=== PATIENT | female | born 1995 | race Caucasian/White ===

== ENCOUNTER 2020-08-30 01:41 | Inpatient (IN) | payer MEDICAID ==
[2020-08-30] MEDS ORDERED: Sodium Chloride 0.9% 2.5 ML Syringe FLUSH PRN (08:17)
[2020-08-30] MEDS ORDERED: Sodium Chloride 0.9% 10 ML SDV IV PRN (08:17)
[2020-08-30] MEDS ORDERED: Citric Acid/Sodium Citrate Solution 30 ML Cup PO ONE (08:17)
[2020-08-30] MEDS ORDERED: Sodium Chloride 0.9% 10 ML Syringe FLUSH PRN (08:17)
[2020-08-30] MEDS ORDERED: ceFAZolin 2 GM in Premix Bag 1 BAG IV ONE (08:30)
[2020-08-30] MEDS ORDERED: Oxytocin/0.9 % Sodium Chloride 30 UNIT/500 ML BAG IV SCH (08:30)
[2020-08-30] MEDS: Lactated Ringers 1,000 ML IV SCH ×3 (09:09→09:57)
[2020-08-30] MEDS ORDERED: Morphine PF 10 MG/10 ML SDV ONE (09:34)
[2020-08-30] MEDS ORDERED: Octyl 2-Cyanoacrylate 1 Tube ONE (09:52)
[2020-08-30] MEDS ORDERED: fentaNYL 100 MCG/2 ML SDV ONE ×2 (10:31→10:40)
[2020-08-30] MEDS ORDERED: Oxytocin 10 Units/1 ML SDV ONE (10:33)
[2020-08-30] MEDS ORDERED: Ondansetron 4 MG/2 ML SDV ONE (10:33)
[2020-08-30] MEDS ORDERED: Midazolam 1 MG/ML 2 ML SDV ONE (10:53)
[2020-08-30] MEDS ORDERED: Ketamine 500 mg/10 ML MDV ONE (10:53)
[2020-08-30] MEDS ORDERED: diphenhydrAMINE 50 MG/ML SDV IVPUSH PRN (11:19)
[2020-08-30] MEDS ORDERED: Ondansetron 4 MG/2 ML SDV IVPUSH PRN (11:19)
[2020-08-30] MEDS ORDERED: Acetaminophen/oxyCODONE 325-5 MG Tab PO PRN (11:19)
[2020-08-30] MEDS ORDERED: Bisacodyl 10 MG Supp RECTAL PRN (11:19)
[2020-08-30] MEDS ORDERED: Methylergonovine 0.2 MG/1 ML Amp IM PRN (11:19)
[2020-08-30] MEDS ORDERED: Misoprostol 200 MCG Tab RECTAL PRN (11:19)
[2020-08-30] MEDS ORDERED: Tranexamic Acid 1,000 MG in Sodium Chloride 0.9% 100 ML IV PRN (11:19)
[2020-08-30] MEDS ORDERED: Oxytocin 10 Units/1 ML SDV IM PRN (11:19)
[2020-08-30] MEDS ORDERED: Lanolin 100% Cream 7 GM Tube TOP PRN (11:19)
[2020-08-30] MEDS: Ketorolac 30 MG/ML SDV IVPUSH SCH ×3 (11:20→23:12)
[2020-08-30] MEDS ORDERED: Lactated Ringers 1,000 ML IV SCH (11:30)
--- NOTE | 2020-08-30 12:19 | PCM.PREANE ---
Preanesthetic Assessment - Anesthesia/Transfusion/Family Hx Anesthesia History: Prior Anesthesia Without Reaction Family History of Anesthesia Reaction: No Transfusion History: No Prior Transfusion(s) - Review of Systems General: No Symptoms Pulmonary: No Symptoms Cardiovascular: No Symptoms Gastrointestinal: No Symptoms Neurological: No Symptoms Other: Reports: None - Physical Assessment NPO Status Date: 08/30/20 NPO Status Time: 00:01 Height: 5 ft 4 in Weight: 198 lb ASA Class: 2E Mental Status: Alert & Oriented x3 Airway Class: Mallampati = 2 Dentition: Reports: Normal Dentition ROM/Head Extension: Full Lungs: Clear to Auscultation, Normal Respiratory Effort Cardiovascular: Regular Rate, Regular Rhythm - Lab Values: Laboratory Last Values WBC 13.14 K/uL (4.0-11.0) H 08/30/20 09:09 RBC 3.77 M/uL (4.30-5.90) L 08/30/20 09:09 Hgb 12.2 g/dL (12.0-16.0) 08/30/20 09:09 Hct 36.6 % (36.0-46.0) 08/30/20 09:09 MCV 97.1 fL (80.0-98.0) 08/30/20 09:09 MCH 32.4 pg (27.0-32.0) H 08/30/20 09:09 MCHC 33.3 g/dL (31.0-37.0) 08/30/20 09:09 RDW Std Deviation 47.0 fl (28.0-62.0) 08/30/20 09:09 RDW Coeff of Stephane 13 % (11.0-15.0) 08/30/20 09:09 Plt Count 264 K/uL (150-400) 08/30/20 09:09 MPV 11.10 fL (7.40-12.00) 08/30/20 09:09 Nucleated RBC % 0.0 /100WBC 08/30/20 09:09 Nucleated RBCs # 0 K/uL 08/30/20 09:09 SARS-CoV-2 RNA (ELDER) NEGATIVE (NEGATIVE) 08/30/20 09:04 Blood Type AB POSITIVE 08/30/20 09:09 Antibody Screen NEGATIVE 08/30/20 09:09 - Allergies Allergies/Adverse Reactions: Allergies Allergy/AdvReac Type Severity Reaction Status Date / Time No Known Allergies Allergy Verified 08/28/20 15:42 - Anesthesia Plan Pre-Op Medication Ordered: None - Acknowledgements Anesthesia Type Planned: Spinal Pt an Appropriate Candidate for the Planned Anesthesia: Yes Alternatives and Risks of Anesthesia Discussed w Pt/Guardian: Yes Pt/Guardian Understands and Agrees with Anesthesia Plan: Yes Additional Comments: npo after mn scheduled for C/S and went into labor last night G1 breech no problems during her par no questions PreAnesthesia Questionnaire - Past Health History Medical/Surgical History: Denies Medical/Surgical History HEENT History: Reports: Impaired Vision Other HEENT History: wears glasses Cardiovascular History: Reports: None Respiratory History: Reports: Other (See Below) Other Respiratory History: 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 Gastrointestinal History: Reports: GERD Genitourinary History: Reports: Renal Calculus Other Genitourinary History: states had a kidney stone in 2018 that she passed on her own FILM MASKER History: Reports: Musculoskeletal History: Reports: Back Pain, Chronic Neurological History: Reports: None Psychiatric History: Reports: Anxiety, Depression Endocrine/Metabolic History: Reports: Obesity/BMI 30+ Hematologic History: Reports: None Immunologic History: Reports: None Oncologic (Cancer) History: Reports: None Dermatologic History: Reports: None - Infectious Disease History Infectious Disease History: Reports: None - Past Surgical History Head Surgeries/Procedures: Reports: None HEENT Surgical History: Reports: Oral Surgery, Tonsillectomy Other HEENT Surgeries/Procedures: had wisdom teeth extracted Cardiovascular Surgical History: Reports: None Respiratory Surgical History: Reports: None GI Surgical History: Reports: None Female Surgical History: Reports: None Endocrine Surgical History: Reports: None Musculoskeletal Surgical History: Reports: None Oncologic Surgical History: Reports: None - SUBSTANCE USE Tobacco Use Status *Q: Never Tobacco User - HOME MEDS Home Medications: Home Meds Calcium Carbonate [Antacid] 1 tab PO ASDIRECTED PRN 08/28/20 [History] - CURRENT (IN HOUSE) MEDS Current Meds: Current Medications Bisacodyl (Bisacodyl 10 Mg Supp) 10 mg RECTAL ONETIME PRN PRN Reason: Constipation Diphenhydramine HCl (Diphenhydramine 50 Mg/Ml Sdv) 25 mg IVPUSH Q6H PRN PRN Reason: Itching or Nausea Docusate Sodium (Docusate Sodium 100 Mg Cap) 100 mg PO BID [facility] Emollient Ointment (Lanolin 100% Cream 7 Gm Tube) 0 gm TOP ASDIRECTED PRN PRN Reason: Sore Nipples Lactated Ringer's (Ringers, Lactated) 1,000 mls @ 500 mls/hr IV BOLUS [facility] Last Admin: 08/30/20 09:57 Dose: 500 mls/hr Documented by: Oxytocin/Sodium Chloride (Oxytocin 30 Unit/500 Ml-Ns) 30 unit in 500 mls @ 250 mls/hr IV TITRATE [facility] Lactated Ringer's (Ringers, Lactated) 1,000 mls @ 125 mls/hr IV ASDIRECTED [facility] Tranexamic Acid 1,000 mg/ (Sodium Chloride) 110 mls @ 660 mls/hr IV ONETIME PRN PRN Reason: Bleeding Ibuprofen (Ibuprofen 800 Mg Tab) 800 mg PO Q8H PRN PRN Reason: mild pain or fever Ketorolac Tromethamine (Ketorolac 30 Mg/Ml Sdv) 30 mg IVPUSH Q6H [facility] Stop: 08/31/20 11:31 Last Admin: 08/30/20 11:20 Dose: 30 mg Documented by: Methylergonovine Maleate (Methylergonovine 0.2 Mg/1 Ml Amp) 0.2 mg IM ONETIME PRN PRN Reason: Excessive Vaginal Bleeding Misoprostol (Misoprostol 200 Mcg Tab) 1,000 mcg RECTAL ONETIME PRN PRN Reason: excessive bleeding Ondansetron HCl (Ondansetron 4 Mg/2 Ml Sdv) 4 mg IVPUSH Q4H PRN PRN Reason: Nausea/Vomiting Oxycodone/Acetaminophen (Acetaminophen/Oxycodone 325-5 Mg Tab) 1 tab PO Q4H PRN PRN Reason: Pain (moderate 4-6) Oxycodone/Acetaminophen (Acetaminophen/Oxycodone 325-5 Mg Tab) 2 tab PO Q4H PRN PRN Reason: Pain (moderate 4-6) Oxytocin (Oxytocin 10 Units/1 Ml Sdv) 10 unit IM ASDIRECTED PRN PRN Reason: Excessive Vaginal Bleeding Sodium Chloride (Sodium Chloride 0.9% 10 Ml Syringe) 10 ml FLUSH ASDIRECTED PRN PRN Reason: Keep Vein Open Sodium Chloride (Sodium Chloride 0.9% 2.5 Ml Syringe) 2.5 ml FLUSH ASDIRECTED PRN PRN Reason: Keep Vein Open Sodium Chloride (Sodium Chloride 0.9% 10 Ml Sdv) 10 ml IV ASDIRECTED PRN PRN Reason: IV Use Discontinued Medications Citric Acid/Sodium Citrate (Citric Acid/Sodium Citrate Solution 30 Ml Cup) 30 ml PO ONETIME ONE Stop: 08/30/20 08:18 Last Admin: 08/30/20 09:55 Dose: 30 ml Documented by: Fentanyl (Fentanyl 100 Mcg/2 Ml Sdv) Confirm Administered Dose 100 mcg .ROUTE .STK-MED ONE Stop: 08/30/20 10:32 Fentanyl (Fentanyl 100 Mcg/2 Ml Sdv) Confirm Administered Dose 100 mcg .ROUTE .STK-MED ONE Stop: 08/30/20 10:41 Cefazolin Sodium/Dextrose 2 gm (/ Premix) 50 mls @ 100 mls/hr IV ONETIME ONE Stop: 08/30/20 08:59 Ketamine HCl (Ketamine 500 Mg/10 Ml Mdv) Confirm Administered Dose 500 mg .ROUTE .STK-MED ONE Stop: 08/30/20 10:54 Midazolam HCl (Midazolam 1 Mg/Ml 2 Ml Sdv) Confirm Administered Dose 2 mg .ROUTE .STK-MED ONE Stop: 08/30/20 10:54 Morphine Sulfate (Morphine Pf 10 Mg/10 Ml Sdv) Confirm Administered Dose 10 mg .ROUTE .STK-MED ONE Stop: 08/30/20 09:35 Octyl Cyanoacrylate (Octyl 2-Cyanoacrylate 1 Tube) Confirm Administered Dose 1 applic .ROUTE .STK-MED ONE Stop: 08/30/20 09:53 Ondansetron HCl (Ondansetron 4 Mg/2 Ml Sdv) Confirm Administered Dose 4 mg .ROUTE .STK-MED ONE Stop: 08/30/20 10:34 Oxytocin (Oxytocin 10 Units/1 Ml Sdv) Confirm Administered Dose 20 unit .ROUTE .STK-MED ONE Stop: 08/30/20 10:34
--- NOTE | 2020-08-30 12:20 | PCM.POSTAN ---
POST ANESTHESIA ASSESSMENT - MENTAL STATUS Mental Status: Alert (no anesthetic problems), Oriented - RESPIRATORY Respiratory Status: Respiratory Rate WNL, Airway Patent, O2 Saturation Stable - CARDIOVASCULAR CV Status: Pulse Rate WNL, Blood Pressure Stable - GASTROINTESTINAL GI Status: No Symptoms - POST OP HYDRATION Hydration Status: Adequate & Stable
[2020-08-30] MEDS: Docusate Sodium 100 MG Cap PO SCH (21:00)
[2020-08-31] MEDS: Ketorolac 30 MG/ML SDV IVPUSH SCH ×2 (05:23→12:56)
--- NOTE | 2020-08-31 07:06 | PCM48HPAN ---
Post Anesthesia Note - EVALUATION WITHIN 48HRS OF ANESTHETIC Vital Signs in Normal Range: Yes Patient Participated in Evaluation: Yes Respiratory Function Stable: Yes Airway Patent: Yes Cardiovascular Function Stable: Yes Hydration Status Stable: Yes Pain Control Satisfactory: Yes Nausea and Vomiting Control Satisfactory: Yes Mental Status Recovered: Yes Vital Signs: Last Vital Signs Temp 36.9 C 08/31/20 04:00 Pulse 96 08/31/20 06:00 Resp 16 08/31/20 06:00 BP 112/62 08/31/20 04:00 Pulse Ox 94 L 08/31/20 06:00
--- NOTE | 2020-08-31 08:30 | OR ---
SURGEON: Aniceto Bowden MD DATE OF PROCEDURE: 08/30/2020 INDICATION FOR PROCEDURE: A 25-year-old, G1, P0, at 39 weeks and 0 days, presented with regular contractions. The baby is breech presentation was scheduled for a primary . She declined ECV after discussion of risks and benefits. The patient was monitored for about 4 hours and she had regular contractions that were uncomfortable. She lives remotely from the hospital. Decision was made to proceed with primary section at this time. She had otherwise uncomplicated and is GBS negative. PREOPERATIVE DIAGNOSES: 1. Andrews intrauterine at 39 weeks and 0 days. 2. Breech presentation. POSTOPERATIVE DIAGNOSES: 1. Andrews intrauterine at 39 weeks and 0 days. 2. Breech presentation. PROCEDURE PERFORMED: Primary low-transverse section. ANESTHESIOLOGIST: Dr. Joelle Elliott. ANESTHESIA: Spinal. FINDINGS: Viable male in [place] breech presentation. scores of 7 and 9. weight of 7lbs 2oz. ESTIMATED BLOOD LOSS: 700 cc. DESCRIPTION OF PROCEDURE: The procedure was discussed with the patient. Risks and complications including bleeding, infection, injury to surrounding organs including bladder, bowel, and ureter. The patient expressed understanding. Consent signed. The patient was brought to the operating room. She received 2 g Ancef IV and pneumatic stockings. Spinal anesthesia was placed. A Imtchell catheter was placed. The abdomen was prepped with chlorhexidine in sterile fashion and draped and tested for anesthesia. The spinal was adequate. A Pfannenstiel incision was made with a scalpel and dissected down to fascia. Multiple sites of bleeding were noted and cauterized. The fascia was cleared of subcutaneous tissue. The fascia was incised in the midline and extended laterally with curved Shane scissors. Allan clamps were placed on the superior fascial edge. The rectus muscles were with a blunt dissection and using Shane scissors. The same process was repeated for the inferior fascial edge. The peritoneum was entered bluntly. The rectus muscles were carefully in the midline using Metzenbaum scissors. The peritoneum was then extended bluntly. A large Jamil O retractor was placed in the peritoneal cavity. The bladder was noted to be away from the site of the incision. The uterus was incised using the scalpel at the lower uterine segment transversely and extended bluntly. Clear amniotic fluid was noted and ruptured. The was turned sacrum anterior and buttocks brought out of the hysterotomy. The baby was in [place] breech presentation. The legs and body were then delivered. The baby was then rotated to deliver the right arm, then rotated the opposite side to deliver the left arm. The baby's hips were elevated and the chin flexed and delivered. No nuchal cord was noted. The baby was pink, crying and moving all extremities immediately after delivery. The umbilical cord was clamped and cut after 60 seconds and no longer pulsating. The baby was handed over to the awaiting nursery staff. Cord gases were obtained. The placenta was delivered with gentle traction on the umbilical cord and uterine massage. A clean lap was used to remove all remaining membranes from the uterine cavity. Allis clamps were used to grasp the angles and lower edges of the incision. The uterine incision was closed in two layers, the first layer in running locking fashion using 0 Monocryl, the second layer in vertical imbricated fashion using 0 Vicryl. The uterus was firm. The paracolic gutters were cleared of any clots. The incision was irrigated copiously and checked again for hemostasis. The Jamil O retractors were removed. The edge of the peritoneum was grasped with hemostats, it was closed with 2-0 Vicryl in running fashion. The rectus muscles were reapproximated at the midline with two mattress sutures using 2-0 Vicryl. The rectus muscles were carefully examined and bleeding areas cauterized. The fascia was closed using 0 Vicryl in running fashion. The subcutaneous tissue was irrigated and bleeding areas cauterized. The subcutaneous layer was brought together with 2-0 plain suture. The skin was closed in subcuticular fashion using 2-0 Monocryl on a Patric needle. A Telfa, ABD dressing was placed over the incision. The patient tolerated the procedure well, was stable and transferred to the recovery room. CATALINA GARG /[id number] ANGELICA
--- NOTE | 2020-08-31 08:49 | PCM.PNPP ---
- General Info Date of Service: 08/31/20 Functional Status: Reports: Pain Controlled, Tolerating Diet, Ambulating, Urinating - Review of Systems General: Reports: No Symptoms HEENT: Reports: No Symptoms Pulmonary: Reports: No Symptoms Cardiovascular: Reports: No Symptoms Gastrointestinal: Reports: No Symptoms Genitourinary: Reports: No Symptoms Musculoskeletal: Reports: No Symptoms Skin: Reports: No Symptoms Neurological: Reports: No Symptoms Psychiatric: Reports: No Symptoms - Patient Data Vital Signs - Most Recent: Last Vital Signs Temp 36.1 C 08/31/20 07:32 Pulse 91 08/31/20 08:05 Resp 18 08/31/20 08:05 BP 121/82 08/31/20 07:32 Pulse Ox 94 L 08/31/20 08:05 Weight - Most Recent: 198 lb I&O - Last 24 Hours: Intake & Output 08/30/20 08/31/20 08/31/20 22:59 06:59 14:59 Output Total 1125 1325 Balance -1125 -1325 Lab Results - Last 24 Hours: Laboratory Results - last 24 hr 08/30/20 08/30/20 08/30/20 Range/Units 09:04 09:09 09:09 WBC 13.14 H (4.0-11.0) K/uL RBC 3.77 L (4.30-5.90) M/uL Hgb 12.2 (12.0-16.0) g/dL Hct 36.6 (36.0-46.0) % MCV 97.1 (80.0-98.0) fL MCH 32.4 H (27.0-32.0) pg MCHC 33.3 (31.0-37.0) g/dL RDW Std Deviation 47.0 (28.0-62.0) fl RDW Coeff of Stephane 13 (11.0-15.0) % Plt Count 264 (150-400) K/uL MPV 11.10 (7.40-12.00) fL Nucleated RBC % 0.0 /100WBC Nucleated RBCs # 0 K/uL Cord ABG pH Cord ABG Base Excess Cord VBG pH (7.25-7.45) Cord VBG Base Excess (-10--2) SARS-CoV-2 RNA (ELDER) NEGATIVE (NEGATIVE) Blood Type AB POSITIVE Antibody Screen NEGATIVE 08/30/20 08/30/20 08/31/20 Range/Units 10:55 10:55 05:45 WBC (4.0-11.0) K/uL RBC (4.30-5.90) M/uL Hgb 10.7 L (12.0-16.0) g/dL Hct 32.6 L (36.0-46.0) % MCV (80.0-98.0) fL MCH (27.0-32.0) pg MCHC (31.0-37.0) g/dL RDW Std Deviation (28.0-62.0) fl RDW Coeff of Stephane (11.0-15.0) % Plt Count (150-400) K/uL MPV (7.40-12.00) fL Nucleated RBC % /100WBC Nucleated RBCs # K/uL Cord ABG pH QNS Cord ABG Base Excess QNS Cord VBG pH 7.402 (7.25-7.45) Cord VBG Base Excess -4 (-10--2) SARS-CoV-2 RNA (ELDER) (NEGATIVE) Blood Type Antibody Screen Med Orders - Current: Current Medications Bisacodyl (Bisacodyl 10 Mg Supp) 10 mg RECTAL ONETIME PRN PRN Reason: Constipation Diphenhydramine HCl (Diphenhydramine 50 Mg/Ml Sdv) 25 mg IVPUSH Q6H PRN PRN Reason: Itching or Nausea Docusate Sodium (Docusate Sodium 100 Mg Cap) 100 mg PO BID [facility] Last Admin: 08/30/20 21:00 Dose: 100 mg Documented by: Emollient Ointment (Lanolin 100% Cream 7 Gm Tube) 0 gm TOP ASDIRECTED PRN PRN Reason: Sore Nipples Lactated Ringer's (Ringers, Lactated) 1,000 mls @ 500 mls/hr IV BOLUS [facility] Last Admin: 08/30/20 09:57 Dose: 500 mls/hr Documented by: Oxytocin/Sodium Chloride (Oxytocin 30 Unit/500 Ml-Ns) 30 unit in 500 mls @ 250 mls/hr IV TITRATE [facility] Lactated Ringer's (Ringers, Lactated) 1,000 mls @ 125 mls/hr IV ASDIRECTED [facility] Last Admin: 08/30/20 13:28 Dose: 125 mls/hr Documented by: Tranexamic Acid 1,000 mg/ (Sodium Chloride) 110 mls @ 660 mls/hr IV ONETIME PRN PRN Reason: Bleeding Ibuprofen (Ibuprofen 800 Mg Tab) 800 mg PO Q8H PRN PRN Reason: mild pain or fever Ketorolac Tromethamine (Ketorolac 30 Mg/Ml Sdv) 30 mg IVPUSH Q6H [facility] Stop: 08/31/20 11:31 Last Admin: 08/31/20 05:23 Dose: 30 mg Documented by: Methylergonovine Maleate (Methylergonovine 0.2 Mg/1 Ml Amp) 0.2 mg IM ONETIME PRN PRN Reason: Excessive Vaginal Bleeding Misoprostol (Misoprostol 200 Mcg Tab) 1,000 mcg RECTAL ONETIME PRN PRN Reason: excessive bleeding Ondansetron HCl (Ondansetron 4 Mg/2 Ml Sdv) 4 mg IVPUSH Q4H PRN PRN Reason: Nausea/Vomiting Oxycodone/Acetaminophen (Acetaminophen/Oxycodone 325-5 Mg Tab) 1 tab PO Q4H PRN PRN Reason: Pain (moderate 4-6) Last Admin: 08/30/20 16:17 Dose: 1 tab Documented by: Oxycodone/Acetaminophen (Acetaminophen/Oxycodone 325-5 Mg Tab) 2 tab PO Q4H PRN PRN Reason: Pain (moderate 4-6) Oxytocin (Oxytocin 10 Units/1 Ml Sdv) 10 unit IM ASDIRECTED PRN PRN Reason: Excessive Vaginal Bleeding Sodium Chloride (Sodium Chloride 0.9% 10 Ml Syringe) 10 ml FLUSH ASDIRECTED PRN PRN Reason: Keep Vein Open Sodium Chloride (Sodium Chloride 0.9% 2.5 Ml Syringe) 2.5 ml FLUSH ASDIRECTED PRN PRN Reason: Keep Vein Open Sodium Chloride (Sodium Chloride 0.9% 10 Ml Sdv) 10 ml IV ASDIRECTED PRN PRN Reason: IV Use Discontinued Medications Citric Acid/Sodium Citrate (Citric Acid/Sodium Citrate Solution 30 Ml Cup) 30 ml PO ONETIME ONE Stop: 08/30/20 08:18 Last Admin: 08/30/20 09:55 Dose: 30 ml Documented by: Fentanyl (Fentanyl 100 Mcg/2 Ml Sdv) Confirm Administered Dose 100 mcg .ROUTE .STK-MED ONE Stop: 08/30/20 10:32 Fentanyl (Fentanyl 100 Mcg/2 Ml Sdv) Confirm Administered Dose 100 mcg .ROUTE .STK-MED ONE Stop: 08/30/20 10:41 Cefazolin Sodium/Dextrose 2 gm (/ Premix) 50 mls @ 100 mls/hr IV ONETIME ONE Stop: 08/30/20 08:59 Last Admin: 08/30/20 16:01 Dose: Not Given Documented by: Ketamine HCl (Ketamine 500 Mg/10 Ml Mdv) Confirm Administered Dose 500 mg .ROUTE .STK-MED ONE Stop: 08/30/20 10:54 Midazolam HCl (Midazolam 1 Mg/Ml 2 Ml Sdv) Confirm Administered Dose 2 mg .ROUTE .STK-MED ONE Stop: 08/30/20 10:54 Morphine Sulfate (Morphine Pf 10 Mg/10 Ml Sdv) Confirm Administered Dose 10 mg .ROUTE .STK-MED ONE Stop: 08/30/20 09:35 Octyl Cyanoacrylate (Octyl 2-Cyanoacrylate 1 Tube) Confirm Administered Dose 1 applic .ROUTE .STK-MED ONE Stop: 08/30/20 09:53 Last Admin: 08/30/20 16:01 Dose: Not Given Documented by: Ondansetron HCl (Ondansetron 4 Mg/2 Ml Sdv) Confirm Administered Dose 4 mg .ROUTE .STK-MED ONE Stop: 08/30/20 10:34 Oxytocin (Oxytocin 10 Units/1 Ml Sdv) Confirm Administered Dose 20 unit .ROUTE .STK-MED ONE Stop: 08/30/20 10:34 - Infant Interaction Infant Disposition, : [place] to Nursery Support Person: - Recovery Exam Fundal Tone: Firm Fundal Level: 1 Fingerbreadths Below Umbilicus Fundal Placement: Midline Lochia Amount: Scant Lochia Color: Rubra/Red Perineum Description: Intact, Minimal Bruising/Swelling Episiotomy/Laceration: None Bladder Status: Indwelling Catheter in Place Urinary Elimination: Indwelling Catheter - Exam General: Alert, Oriented, Cooperative, No Acute Distress HEENT: Pupils Equal, Pupils Reactive Neck: Supple, Trachea Midline, No JVD Lungs: Normal Respiratory Effort GI/Abdominal Exam: Soft, Non-Tender, No Distention Extremities: Normal Inspection, Normal Range of Motion, Non-Tender, No Pedal Edema Skin: Warm, Dry, Intact Wound/Incisions: Dressing Dry and Intact Neurological: No New Focal Deficit Psy/Mental Status: Alert, Normal Affect, Normal Mood - Problem List Review Problem List Initiated/Reviewed/Updated: Yes - My Orders Last 24 Hours: My Active Orders 08/30/20 08:17 Peripheral IV Care [RC] PRN Sodium Chloride 0.9% [Normal Saline] 10 ml IV ASDIRECTED PRN Sodium Chloride 0.9% [Saline Flush] 10 ml FLUSH ASDIRECTED PRN Sodium Chloride 0.9% [Saline Flush] 2.5 ml FLUSH ASDIRECTED PRN Peripheral IV Insertion Adult [OM.PC] Routine Schedule Procedure [COMM] Per Unit Routine 08/30/20 08:30 Lactated Ringers [Ringers, Lactated] 1,000 ml IV BOLUS Oxytocin/0.9 % Sodium Chloride [Oxytocin 30 Unit/500 ML-NS] 30 unit in 500 ml IV TITRATE 08/30/20 09:09 RPR (SYPHILIS SERO) W/ RFLX [REF] Routine 08/30/20 10:00 Notify Provider Vital Signs [RC] PRN 08/30/20 Lunch Regular Diet [DIET] 08/30/20 11:19 Patient Status [ADT] Routine Ambulate [RC] PER UNIT ROUTINE Communication Order [RC] PER UNIT ROUTINE Communication Order [RC] PER UNIT ROUTINE Communication Order [RC] Per Unit Routine Intake and Output [RC] Q4H May Shower [RC] ASDIRECTED Notify Provider Intake and Out [RC] ASDIRECTED Notify Provider Vital Signs [RC] ASDIRECTED RT Incentive Spirometry [RC] Q2HWA Vital Signs [RC] Q1H Acetaminophen/oxyCODONE [Percocet 325-5 MG] 1 tab PO Q4H PRN Acetaminophen/oxyCODONE [Percocet 325-5 MG] 2 tab PO Q4H PRN Lanolin [Lansinoh HPA] See Dose Instructions TOP ASDIRECTED PRN Methylergonovine [Methergine] 0.2 mg IM ONETIME PRN Ondansetron [Zofran] 4 mg IVPUSH Q4H PRN Oxytocin [Pitocin] 10 unit IM ASDIRECTED PRN Tranexamic Acid [Cyklokapron] 1,000 mg Sodium Chloride 0.9% [Normal Saline] 100 ml IV ONETIME bisacodyL [Dulcolax] 10 mg RECTAL ONETIME PRN diphenhydrAMINE [Benadryl] 25 mg IVPUSH Q6H PRN miSOPROStoL [Cytotec] 1,000 mcg RECTAL ONETIME PRN Assess Lochia [WOMSER] Per Unit Routine Assess Uterine Involution [WOMSER] Per Unit Routine Breast Pump [WOMSER] Per Unit Routine Peripheral IV Discontinue [OM.PC] Routine Sequential Compression Device [OM.PC] Per Unit Routine 08/30/20 11:20 Antiembolic Devices [RC] PER UNIT ROUTINE Abdominal Binder [OM.PC] Per Unit Routine 08/30/20 11:30 Ketorolac [Toradol] 30 mg IVPUSH Q6H Lactated Ringers [Ringers, Lactated] 1,000 ml IV ASDIRECTED 08/30/20 21:00 Docusate Sodium [Colace] 100 mg PO BID 08/31/20 17:30 Ibuprofen [Motrin] 800 mg PO Q8H PRN - Assessment Assessment:: 25yo POD1 s/p primary due to breech presentation, stable and recovering well. - Plan Plan:: vital stable ambulating and tolerating PO voiding, good UO Hgb 10.7, bleeding light, no s/s of anemia baby is being monitored for pneumothorax, is improving plan for discharge home tomorrow, pending maternal and status
[2020-08-31] MEDS: Docusate Sodium 100 MG Cap PO SCH ×2 (09:05→22:04)
[2020-08-31] MEDS ORDERED: Ibuprofen 800 MG Tab PO PRN (17:30)
[2020-08-31] MEDS: Acetaminophen/oxyCODONE 325-5 MG Tab PO PRN (19:50)
[2020-09-01] MEDS: Acetaminophen/oxyCODONE 325-5 MG Tab PO PRN ×3 (00:13→11:28)
[2020-09-01 08:01] VITALS: BP 116/85; PULSE 83
[2020-09-01] MEDS: Docusate Sodium 100 MG Cap PO SCH (08:01)
--- NOTE | 2020-09-01 08:54 | PCM.PN ---
- General Info Date of Service: 09/01/20 Functional Status: Reports: Pain Controlled, Tolerating Diet, Ambulating, Urinating, Other (+ flatus and BM) - Review of Systems General: Reports: No Symptoms HEENT: Reports: No Symptoms Pulmonary: Reports: No Symptoms Cardiovascular: Reports: No Symptoms Gastrointestinal: Reports: No Symptoms Genitourinary: Reports: No Symptoms Musculoskeletal: Reports: No Symptoms Skin: Reports: No Symptoms Neurological: Reports: No Symptoms Psychiatric: Reports: No Symptoms - Patient Data Vitals - Most Recent: Last Vital Signs Temp 36.4 C 09/01/20 07:30 Pulse 83 09/01/20 07:30 Resp 19 09/01/20 07:30 BP 116/85 09/01/20 07:30 Pulse Ox 98 09/01/20 07:30 Weight - Most Recent: 198 lb Med Orders - Current: Current Medications Bisacodyl (Bisacodyl 10 Mg Supp) 10 mg RECTAL ONETIME PRN PRN Reason: Constipation Diphenhydramine HCl (Diphenhydramine 50 Mg/Ml Sdv) 25 mg IVPUSH Q6H PRN PRN Reason: Itching or Nausea Docusate Sodium (Docusate Sodium 100 Mg Cap) 100 mg PO BID REPLACED BY [facility] Last Admin: 08/31/20 22:04 Dose: 100 mg Documented by: Emollient Ointment (Lanolin 100% Cream 7 Gm Tube) 0 gm TOP ASDIRECTED PRN PRN Reason: Sore Nipples Lactated Ringer's (Ringers, Lactated) 1,000 mls @ 500 mls/hr IV BOLUS REPLACED BY [facility] Last Admin: 08/30/20 09:57 Dose: 500 mls/hr Documented by: Oxytocin/Sodium Chloride (Oxytocin 30 Unit/500 Ml-Ns) 30 unit in 500 mls @ 250 mls/hr IV TITRATE REPLACED BY [facility] Lactated Ringer's (Ringers, Lactated) 1,000 mls @ 125 mls/hr IV ASDIRECTED REPLACED BY [facility] Last Admin: 08/30/20 13:28 Dose: 125 mls/hr Documented by: Tranexamic Acid 1,000 mg/ (Sodium Chloride) 110 mls @ 660 mls/hr IV ONETIME PRN PRN Reason: Bleeding Ibuprofen (Ibuprofen 800 Mg Tab) 800 mg PO Q8H PRN PRN Reason: mild pain or fever Last Admin: 09/01/20 04:38 Dose: 800 mg Documented by: Methylergonovine Maleate (Methylergonovine 0.2 Mg/1 Ml Amp) 0.2 mg IM ONETIME PRN PRN Reason: Excessive Vaginal Bleeding Misoprostol (Misoprostol 200 Mcg Tab) 1,000 mcg RECTAL ONETIME PRN PRN Reason: excessive bleeding Ondansetron HCl (Ondansetron 4 Mg/2 Ml Sdv) 4 mg IVPUSH Q4H PRN PRN Reason: Nausea/Vomiting Oxycodone/Acetaminophen (Acetaminophen/Oxycodone 325-5 Mg Tab) 1 tab PO Q4H PRN PRN Reason: Pain (moderate 4-6) Last Admin: 08/30/20 16:17 Dose: 1 tab Documented by: Oxycodone/Acetaminophen (Acetaminophen/Oxycodone 325-5 Mg Tab) 2 tab PO Q4H PRN PRN Reason: Pain (moderate 4-6) Last Admin: 09/01/20 07:35 Dose: 2 tab Documented by: Oxytocin (Oxytocin 10 Units/1 Ml Sdv) 10 unit IM ASDIRECTED PRN PRN Reason: Excessive Vaginal Bleeding Sodium Chloride (Sodium Chloride 0.9% 10 Ml Syringe) 10 ml FLUSH ASDIRECTED PRN PRN Reason: Keep Vein Open Sodium Chloride (Sodium Chloride 0.9% 2.5 Ml Syringe) 2.5 ml FLUSH ASDIRECTED PRN PRN Reason: Keep Vein Open Sodium Chloride (Sodium Chloride 0.9% 10 Ml Sdv) 10 ml IV ASDIRECTED PRN PRN Reason: IV Use Discontinued Medications Citric Acid/Sodium Citrate (Citric Acid/Sodium Citrate Solution 30 Ml Cup) 30 ml PO ONETIME ONE Stop: 08/30/20 08:18 Last Admin: 08/30/20 09:55 Dose: 30 ml Documented by: Fentanyl (Fentanyl 100 Mcg/2 Ml Sdv) Confirm Administered Dose 100 mcg .ROUTE .STK-MED ONE Stop: 08/30/20 10:32 Fentanyl (Fentanyl 100 Mcg/2 Ml Sdv) Confirm Administered Dose 100 mcg .ROUTE .STK-MED ONE Stop: 08/30/20 10:41 Cefazolin Sodium/Dextrose 2 gm (/ Premix) 50 mls @ 100 mls/hr IV ONETIME ONE Stop: 08/30/20 08:59 Last Admin: 08/30/20 16:01 Dose: Not Given Documented by: Ketamine HCl (Ketamine 500 Mg/10 Ml Mdv) Confirm Administered Dose 500 mg .ROUTE .STK-MED ONE Stop: 08/30/20 10:54 Ketorolac Tromethamine (Ketorolac 30 Mg/Ml Sdv) 30 mg IVPUSH Q6H CHRIS Stop: 08/31/20 11:31 Last Admin: 08/31/20 12:56 Dose: 30 mg Documented by: Midazolam HCl (Midazolam 1 Mg/Ml 2 Ml Sdv) Confirm Administered Dose 2 mg .ROUTE .STK-MED ONE Stop: 08/30/20 10:54 Morphine Sulfate (Morphine Pf 10 Mg/10 Ml Sdv) Confirm Administered Dose 10 mg .ROUTE .STK-MED ONE Stop: 08/30/20 09:35 Octyl Cyanoacrylate (Octyl 2-Cyanoacrylate 1 Tube) Confirm Administered Dose 1 applic .ROUTE .STK-MED ONE Stop: 08/30/20 09:53 Last Admin: 08/30/20 16:01 Dose: Not Given Documented by: Ondansetron HCl (Ondansetron 4 Mg/2 Ml Sdv) Confirm Administered Dose 4 mg .ROUTE .STK-MED ONE Stop: 08/30/20 10:34 Oxytocin (Oxytocin 10 Units/1 Ml Sdv) Confirm Administered Dose 20 unit .ROUTE .STK-MED ONE Stop: 08/30/20 10:34 - Exam General: Alert, Oriented, Cooperative, No Acute Distress HEENT: Pupils Equal, Pupils Reactive, EOMI Neck: Supple, Trachea Midline, No JVD Lungs: Normal Respiratory Effort GI/Abdominal Exam: Soft, Non-Tender, No Distention Back Exam: Normal Inspection, Full Range of Motion Extremities: Normal Inspection, Normal Range of Motion, Non-Tender, No Pedal Edema Skin: Warm, Dry, Intact Wound/Incisions: Healing Well Neurological: No New Focal Deficit Psy/Mental Status: Alert, Normal Affect, Normal Mood - Patient Data Result Diagrams: 08/31/20 05:45 Sepsis Event Note - Evaluation Sepsis Screening Result: No Definite Risk - Focused Exam Vital Signs: Vital Signs Temp Pulse Pulse Resp BP Pulse Ox 09/01/20 07:30 36.4 C 83 19 116/85 98 09/01/20 04:45 36.2 C 92 16 99/67 98 - Problem List Review Problem List Initiated/Reviewed/Updated: Yes - My Orders Last 24 Hours: My Active Orders 08/31/20 17:30 Ibuprofen [Motrin] 800 mg PO Q8H PRN - Assessment Assessment:: 25yo POD2 s/p primary due to breech presentation, stable and recovering well. - Plan Plan:: vital stable ambulating and tolerating PO voiding, good UO Hgb 10.7, bleeding light, no s/s of anemia baby is being monitored for pneumothorax, is improving plan for discharge home tomorrow
== END 2020-09-01 13:33 | disposition home or self-care (01) | DRG 788 ==
LOC: MW.OB 01:41
PROVIDERS: ADMIT Obstetrics & Gynecology; ATTEND Obstetrics & Gynecology
PROC: 10D00Z1 Extraction of Products of Conception, Low, Open Approach (ICD-10-PCS; principal; 2020-08-30)
DX: O32.1XX0 Maternal care for breech presentation, not applicable or unspecified (principal); O99.62 Diseases of the digestive system complicating childbirth; K21.9 Gastro-esophageal reflux disease without esophagitis; O99.214 Obesity complicating childbirth; E66.9 Obesity, unspecified; Z37.0 Single live birth; Z3A.39 39 weeks gestation of pregnancy; Z20.822 Contact with and (suspected) exposure to COVID-19
CPT/HCPCS: 01961; 36415; 51702; 59025; 82803; 85014; 85018; 85027; 86592; 86850; 86900; 86901; A9270-GY; J1885; J2250; J2270; J2405; J2590; J3010; J7120; U0002